=== PATIENT | male | born 1970 | race Caucasian/White ===

== ENCOUNTER 2020-08-07 12:52 | Emergency (ER) | payer SELFPAY ==
[~2020-08-07] VITALS: Ht 180 cm; Wt 190.0 kg
--- NOTE | 2020-08-07 13:09 | ED General ---
General Stated Complaint: WEAKNESS,HOMELESS Source of Information: Patient, EMS Exam Limitations: No Limitations History of Present Illness Date Seen by Provider: Aug 07, 2020 Time Seen by Provider: 13:07 Initial Comments to ER by EMS from his truck where has been residing for the past few weeks. He is from [place]. He was traveling to [place] looking for work. He has a history of arthritis. He states that about 2 weeks ago he got sick with a flareup of his arthritis and has been unable to eat or drink much. He has been essentially living in his truck. He urinates into a cup and throws it out the window. His last bowel movement was 2 weeks ago at [facility] He denies fevers or chills. Timing/Duration: Other Severity: Moderate Allergies and Home Medications Allergies Coded Allergies: No Known Drug Allergies (Unverified , 08/07/20) Home Medications Allopurinol 100 Mg Tablet, 100 MG PO DAILY Prescribed by: ZACHARIAH POWERS on 08/07/20 1417 Colchicine 0.6 Mg Tablet, 0.6 MG PO DAILY Prescribed by: ZACHARIAH POWERS on 08/07/20 1417 Hydrocodone/Acetaminophen 1 Each Tablet, 1 TAB PO Q4H PRN for PAIN-MODERATE (5- 7) Prescribed by: ZACHARIAH POWERS on 08/07/20 1418 Metoprolol Tartrate 25 Mg Tablet, 25 MG PO BID Prescribed by: ZACHARIAH POWERS on 08/07/20 1417 Patient Home Medication List Home Medication List Reviewed: Yes Review of Systems Review of Systems Constitutional: see HPI EENTM: see HPI Respiratory: no symptoms reported Cardiovascular: no symptoms reported Genitourinary: no symptoms reported Musculoskeletal: see HPI, joint pain Skin: no symptoms reported Psychiatric/Neurological: No Symptoms Reported Hematologic/Lymphatic: No Symptoms Reported Immunological/Allergic: no symptoms reported Physical Exam Vital Signs Vital Signs - First Documented 08/07/20 12:52 Temp 36.2 Pulse 110 Resp 20 B/P (MAP) 168/131 (143) Pulse Ox 96 O2 Delivery Room Air Capillary Refill : Height, Weight, BMI Height: '" Weight: lbs. oz. kg; BMI Method: General Appearance: No Apparent Distress, WD/WN, Other (Alert and oriented) Eyes: Bilateral Eye Normal Inspection, Bilateral Eye PERRL Neck: Full Range of Motion, Normal Inspection Respiratory: No Accessory Muscle Use, No Respiratory Distress Gastrointestinal: Normal Bowel Sounds, Non Tender, Soft Extremity: Normal Capillary Refill, Normal Inspection, Other (He does have enlarged joints over some of the knuckles on the left hand. He has an olecranon bursal effusion on both elbows. The overlying skin is normal not red and minimally tender. Knuckles on the hands are enlarged bilaterally.) Neurologic/Psychiatric: Alert, Oriented x3 Skin: Normal Color, Warm/Dry Progress/Results/Core Measures Suspected Sepsis SIRS Temperature: Pulse: Respiratory Rate: Laboratory Tests 08/07/20 13:05: White Blood Count 10.2 Blood Pressure / Mean: Laboratory Tests 08/07/20 13:05: Creatinine 1.56H, INR Comment 1.7H, Platelet Count 543H, Total Bilirubin 0.9 Results/Orders Lab Results Laboratory Tests Test 08/07/20 13:05 08/07/20 13:13 Range/Units White Blood Count 10.2 4.3-11.0 10^3/uL Red Blood Count 4.51 4.30-5.52 10^6/uL Hemoglobin 14.3 13.3-17.7 g/dL Hematocrit 44 40-54 % Mean Corpuscular Volume 98 80-99 fL Mean Corpuscular Hemoglobin 32 25-34 pg Mean Corpuscular Hemoglobin Concent 32 32-36 g/dL Red Cell Distribution Width 12.7 10.0-14.5 % Platelet Count 543 H 130-400 10^3/uL Mean Platelet Volume 9.7 9.0-12.2 fL Immature Granulocyte % (Auto) 1 % Neutrophils (%) (Auto) 74 42-75 % Lymphocytes (%) (Auto) 11 L 12-44 % Monocytes (%) (Auto) 12 0-12 % Eosinophils (%) (Auto) 1 0-10 % Basophils (%) (Auto) 0 0-10 % Neutrophils # (Auto) 7.6 1.8-7.8 10^3/uL Lymphocytes # (Auto) 1.2 1.0-4.0 10^3/uL Monocytes # (Auto) 1.2 H 0.0-1.0 10^3/uL Eosinophils # (Auto) 0.1 0.0-0.3 10^3/uL Basophils # (Auto) 0.0 0.0-0.1 10^3/uL Immature Granulocyte # (Auto) 0.1 0.0-0.1 10^3/uL Erythrocyte Sedimentation Rate 59 H 0-30 MM/HR Prothrombin Time 20.5 H 12.2-14.7 SEC INR Comment 1.7 H 0.8-1.4 Sodium Level 138 135-145 MMOL/L Potassium Level 4.5 3.6-5.0 MMOL/L Chloride Level 101 98-107 MMOL/L Carbon Dioxide Level 20 L 21-32 MMOL/L Anion Gap 17 H 5-14 MMOL/L Blood Urea Nitrogen 50 H 7-18 MG/DL Creatinine 1.56 H 0.60-1.30 MG/DL Estimat Glomerular Filtration Rate 47 BUN/Creatinine Ratio 32 Glucose Level 100 70-105 MG/DL Uric Acid 16.0 *H 2.6-7.2 MG/DL Calcium Level 10.4 H 8.5-10.1 MG/DL Corrected Calcium 10.5 H 8.5-10.1 MG/DL Total Bilirubin 0.9 0.1-1.0 MG/DL Aspartate Amino Transf (AST/SGOT) 27 5-34 U/L Alanine Aminotransferase (ALT/SGPT) 42 0-55 U/L Alkaline Phosphatase 108 40-136 U/L C-Reactive Protein High Sensitivity 19.57 H 0.00-0.50 MG/DL Total Protein 8.6 H 6.4-8.2 GM/DL Albumin 3.9 3.2-4.5 GM/DL Beta-Hydroxybutyrate (Chem panel) 1.54 H 0.00-0.27 MMOL/L Urine Color PAUL H Urine Clarity CLEAR Urine pH 5.0 5-9 Urine Specific Williamson >=1.030 1.016-1.022 Urine Protein TRACE H NEGATIVE Urine Glucose (UA) NEGATIVE NEGATIVE Urine Ketones TRACE H NEGATIVE Urine Nitrite NEGATIVE NEGATIVE Urine Bilirubin 1+ H NEGATIVE Urine Urobilinogen 1.0 < = 1.0 MG/DL Urine Leukocyte Esterase NEGATIVE NEGATIVE Urine RBC (Auto) 2+ H NEGATIVE Urine RBC 0-2 /HPF Urine WBC 0-2 /HPF Urine Squamous Epithelial Cells RARE /HPF Urine Crystals PRESENT H /LPF Urine Uric Acid Crystals MODERATE H /LPF Urine Amorphous Sediment RARE MAHOGANY URATES H /LPF Urine Bacteria TRACE /HPF Urine Casts PRESENT /LPF Urine Hyaline Casts 0-2 H /LPF Urine Granular Casts 0-2 H /LPF Urine Mucus SMALL H /LPF Urine Culture Indicated NO Urine Opiates Screen NEGATIVE NEGATIVE Urine Oxycodone Screen NEGATIVE NEGATIVE Urine Methadone Screen NEGATIVE NEGATIVE Urine Propoxyphene Screen NEGATIVE NEGATIVE Urine Barbiturates Screen NEGATIVE NEGATIVE Ur Tricyclic Antidepressants Screen NEGATIVE NEGATIVE Urine Phencyclidine Screen NEGATIVE NEGATIVE Urine Amphetamines Screen NEGATIVE NEGATIVE Urine Methamphetamines Screen NEGATIVE NEGATIVE Urine Benzodiazepines Screen NEGATIVE NEGATIVE Urine Cocaine Screen NEGATIVE NEGATIVE Urine Cannabinoids Screen NEGATIVE NEGATIVE My Orders Orders - ZACHARIAH POWERS APRN Cbc With Automated Diff (08/07/20 13:04) Erythrocyte Sedimentation Rate (08/07/20 13:04) Hs C Reactive Protein (08/07/20 13:04) Uric Acid (08/07/20 13:04) Ua Culture If Indicated (08/07/20 13:04) Drug Screen Stat (Urine) (08/07/20 13:04) Protime With Inr (08/07/20 13:04) Ed Iv/Invasive Line Start (08/07/20 13:04) General/Regular (08/07/20 Lunch) Clonidine Tablet (Catapres Tablet) (08/07/20 13:15) Lactated Ringers (Lr 1000 Ml Iv Solution (08/07/20 13:15) Comprehensive Metabolic Panel (08/07/20 13:37) Ns Iv 1000 Ml (Sodium Chloride 0.9%) (08/07/20 14:00) Beta Hydroxybutyrate (08/07/20 14:01) Hydrocodone/Apap 5/325 Tablet (Lortab 5 (08/07/20 14:15) Colchicine Tablet (Colcrys Tablet) (08/07/20 14:15) Triamcinolone Acetonide Im (Kenalog-40) (08/07/20 15:00) Medications Given in ED Current Medications Medications Dose Ordered Sig/Valentin Route Start Time Stop Time Status Last Admin Dose Admin Acetaminophen/ Hydrocodone Bitart 1 ea ONCE ONCE PO 08/07/20 14:15 08/07/20 14:16 DC 08/07/20 14:17 1 EA Clonidine HCl 0.2 mg ONCE ONCE PO 08/07/20 13:15 08/07/20 13:16 DC 08/07/20 13:18 0.2 MG Colchicine 1.2 mg ONCE ONCE PO 08/07/20 14:15 08/07/20 14:16 DC 08/07/20 14:16 1.2 MG Vital Signs/I&O 08/07/20 12:52 Temp 36.2 Pulse 110 Resp 20 B/P (MAP) 168/131 (143) Pulse Ox 96 O2 Delivery Room Air Capillary Refill : Departure Communication (Admissions) Creatinine clearance estimation based on Cockcroft-Gault formula is estimated at 64 mL a minute. This warrants a standard dose of colchicine. I am afraid he will be unable to fill any of his prescriptions given his current situation. As such I have ordered an intramuscular injection of triamcinolone given the polyarticular nature of his flare. Most of his pain is in the fingers and feet. He is unable to tube mounter his hands. He has difficulty with walking because of the pain. Impression Primary Impression: Dehydration Additional Impressions: Hyperuricemia Gout attack Disposition: HOME, SELF-CARE Condition: Stable Departure-Patient Inst. Decision time for Depature: 14:15 Referrals: GUZMAN KIRK BETHANY N MD HUERTER, DAVID F MD NO,LOCAL PHYSICIAN (PCP) Primary Care Physician Patient Instructions: Gout, Low Purine Diet Add. Discharge Instructions: 1. Increase your fluid intake. Medication as directed. Follow-up with [facility] on [facility] for recheck of labs Scripts Metoprolol Tartrate (Metoprolol Tartrate) 25 Mg Tablet 25 MG PO BID, #30 TAB Prov: ZACHARIAH POWERS APRN 08/07/20 Hydrocodone/Acetaminophen (Hydrocodone-Acetamin 5-325 mg) 1 Each Tablet 1 TAB PO Q4H PRN for PAIN-MODERATE (5-7), #14 TAB Prov: ZACHARIAH POWERS APRN 08/07/20 Allopurinol (Allopurinol) 100 Mg Tablet 100 MG PO DAILY, #14 TAB Prov: ZACHARIAH POWERS APRN 08/07/20 Colchicine (Colchicine) 0.6 Mg Tablet 0.6 MG PO DAILY, #3 TAB Prov: ZACHARIAH POWERS APRN 08/07/20 ZACHARIAH POWERS APRN Aug 07, 2020 13:09
[2020-08-07] MEDS ORDERED: LACTATED RINGERS 1,000 ML IV SCH (13:15)
[2020-08-07] MEDS ORDERED: cloNIDine 0.1 MG (CATAPRES) TAB PO ONE (13:15)
[2020-08-07 13:16] LABS: BASOPHILS % (AUTO) 0 % (0-10); EOSINOPHILS # (AUTO) 0.1 10^3/uL (0.0-0.3); EOSINOPHILS % (AUTO) 1 % (0-10); HEMATOCRIT 44 % (40-54); HEMOGLOBIN 14.3 g/dL (13.3-17.7); LYMPHOCYTES # (AUTO) 1.2 10^3/uL (1.0-4.0); LYMPHOCYTES % (AUTO) 11 % (12-44); MEAN CORPUSCULAR HEMOGLOBIN 32 pg (25-34); MEAN CORPUSCULAR HGB CONC 32 g/dL (32-36); MEAN CORPUSCULAR VOLUME 98 fL (80-99); MEAN PLATELET VOLUME 9.7 fL (9.0-12.2); MONOCYTES # (AUTO) 1.2 10^3/uL (0.0-1.0); MONOCYTES % (AUTO) 12 % (0-12); NEUTROPHILS # (AUTO) 7.6 10^3/uL (1.8-7.8); NEUTROPHILS % (AUTO) 74 % (42-75); PLATELET COUNT 543 10^3/uL (130-400); WHITE BLOOD COUNT 10.2 10^3/uL (4.3-11.0)
[2020-08-07 13:23] LABS: CLARITY,URINE CLEAR; COLOR,URINE AMBER; GLUCOSE, URINE (UA) NEGATIVE (NEGATIVE); KETONES,URINE TRACE (NEGATIVE); LEUKOCYTE ESTERASE ,URINE NEGATIVE (NEGATIVE); NITRITE,URINE NEGATIVE (NEGATIVE); PROTEIN,URINE TRACE (NEGATIVE)
[2020-08-07 13:34] LABS: AMPHETAMINE SCREEN, URINE NEGATIVE (NEGATIVE); BARBITURATE SCREEN URINE NEGATIVE (NEGATIVE); BENZODIAZEPINES SCREEN URINE NEGATIVE (NEGATIVE); CANNABINOID SCREEN, URINE NEGATIVE (NEGATIVE); COCAINE SCREEN URINE NEGATIVE (NEGATIVE); METHADONE STAT NEGATIVE (NEGATIVE); METHAMPHETAMINE SCREEN URINE S NEGATIVE (NEGATIVE); OPIATE SCREEN URINE NEGATIVE (NEGATIVE); OXYCODONE STAT NEGATIVE (NEGATIVE); PROPOXYPHENE STAT NEGATIVE (NEGATIVE); TRICYCLIC ANTIDEPRESSANTS SCRE NEGATIVE (NEGATIVE)
[2020-08-07 13:35] LABS: ERYTHROCYTE SEDIMENTATION RATE 59 MM/HR (0-30)
[2020-08-07 13:38] LABS: INR 1.7 (0.8-1.4); PROTHROMBIN TIME PATIENT 20.5 SEC (12.2-14.7)
[2020-08-07 13:42] LABS: BACTERIA,URINE TRACE /HPF; BILIRUBIN,URINE 1+ (NEGATIVE); RBC,URINE 0-2 /HPF; WBC,URINE 0-2 /HPF
[2020-08-07 13:43] LABS: AMORPHOUS SEDIMENT,UR RARE AMOR URATES /LPF; GRANULAR CASTS,URINE 0-2 /LPF; HYALINE CASTS, URINE 0-2 /LPF; SQUAMOUS EPITHELIAL CELL,UR RARE /HPF; URIC ACID CRYSTALS,URINE MODERATE /LPF
[2020-08-07 13:45] LABS: ALBUMIN 3.9 GM/DL (3.2-4.5)
[2020-08-07 13:46] LABS: POTASSIUM 4.5 MMOL/L (3.6-5.0)
[2020-08-07 13:47] LABS: CALCIUM 10.4 MG/DL (8.5-10.1)
[2020-08-07 13:48] LABS: TOTAL PROTEIN 8.6 GM/DL (6.4-8.2)
[2020-08-07 13:50] LABS: BILIRUBIN,TOTAL 0.9 MG/DL (0.1-1.0)
[2020-08-07 13:52] LABS: CREATININE SERUM 1.56 MG/DL (0.60-1.30)
[2020-08-07] MEDS ORDERED: NS IV 1000 ML 1,000 ML IV SCH (14:00)
[2020-08-07] MEDS ORDERED: HYDROcodone/APAP 5 MG/325 MG (LORTAB) TAB PO ONE (14:15)
[2020-08-07] MEDS ORDERED: COLCHICINE 0.6 MG (COLCRYS) TABLET PO ONE (14:15)
[2020-08-07] MEDS ORDERED: COLC0.6T59 PO (14:17)
[2020-08-07] MEDS ORDERED: METO-333 PO (14:17)
[2020-08-07] MEDS ORDERED: ACHD5005 PO (14:17)
[2020-08-07] MEDS ORDERED: ALLO100T PO (14:17)
[2020-08-07] MEDS ORDERED: TRIAMCINOLONE ACET (KENALOG-40) 40 MG/ML 1 ML VIAL IM ONE (15:00)
[2020-08-07 16:36] VITALS: BP 124/92
== END 2020-08-07 16:36 | disposition home or self-care (01) ==
LOC: ER 12:59
DX: E86.0 Dehydration (principal); M10.9 Gout, unspecified
CPT/HCPCS: 36415; 80053; 80306; 81000; 82010; 84550; 85025; 85610; 85652; 86141